=== PATIENT | male | born 1995 | race Hispanic/Latino ===

== ENCOUNTER 2025-04-11 19:57 | Emergency (ER) | payer SELFPAY ==
[~2025-04-11] VITALS: Ht 177.8 cm; Wt 81.6 kg
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
[2025-04-11] MEDS: teTANUS/diphthERIA TOXOID [ADULT] 0.5 ML VIAL IM ONE (22:06)
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
[2025-04-11] MEDS ORDERED: AMOX1TAB16 PO (22:44)
[2025-04-11 23:30] VITALS: BP 136/69; PULSE 81; RESP 18; TEMP 98.2; O2SAT 98
[2025-04-11] MEDS ORDERED: CYCL10TA16 PO (23:47)
[2025-04-11] MEDS ORDERED: KETO10TA2 PO (23:47)
--- NOTE | 2025-04-11 23:50 | NUR ---
FINGER SPLINT APPLIED TO LEFT PINKIE FINGER
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
== END 2025-04-11 23:50 | disposition home or self-care (01) ==
LOC: EDH 19:57
DX: S62.657A Nondisplaced fracture of middle phalanx of left little finger, initial encounter for closed fracture (principal); S01.01XA Laceration without foreign body of scalp, initial encounter; Z79.899 Other long term (current) drug therapy; Y04.0XXA Assault by unarmed brawl or fight, initial encounter; Y93.89 Activity, other specified; Y92.89 Other specified places as the place of occurrence of the external cause; Y99.8 Other external cause status
CPT/HCPCS: 70450; 70486; 71250; 73130; 74176; 90471; 90714; 99285